=== PATIENT | female | born 1960 | race Caucasian/White ===

== ENCOUNTER 2017-12-30 00:07 | Inpatient (IN) ==
[2017-12-30] MEDS ORDERED: NS 1000 ML 1,000 ML ONE ×2 (00:43→02:07)
[2017-12-30] MEDS ORDERED: NS 1000 ML 1,000 ML IV ONE ×2 (00:51→02:14)
--- NOTE | 2017-12-30 01:01 | DR.GENAD ---
HPI - Complaint/Symptoms Chief Complaint Doctors Comments: Patient states she thinks she is loosing her mind. She has been having dizziness when she stands for the pat two weeks. States she has fallen at home this morning when she was going to the bathroom she lost her balance and fell. She denies headache, nasuea, vomiting, blurred vision or spots in front of her eyes. states she lives with her son and he has a puppy that likes to bite and scratch her and her skin is sensitive. She smokes one pack cigarettes daily and smoke marijuana daily and takes three Hydrocodone 10/325 daily. States she is a patient of Dr. Regina Juarez or Dr Carlisle in [place]. She denies diarrhea or dysuria or hematuria. Chief Complaint:: Pt states, "I'm not doing real good. Pain is in the middle of my bed. I expereinced numbness in my legs earlier." Family states she "had a choking like cough and fell back on the couch. Her eyes rolled in the back of her head." - Nurses notes reviewed Nurses Notes Review: Yes - Source History Provided: Patient - Mode of Arrival Mode of Arrival: Ambulatory - Timing Onset of Chief Complaint: 12/28/17 - Duration Duration: Constant How lon Duration: Weeks - Location Location: dizziness - Severity Severity: Moderate - Modifying Factors Worsens:: nothing Improves:: nothing PMH - PMH Past Medical History: Yes Past Medical History: Arthritis, CVA, [place] Past Medical History Comment: Osteoporosis Past Surgical History: No Surgical History: Angioplasty/Stents - Family History History of Family Medical Conditions: Yes Family Medical History: [place], Hypertension - Social History Alcohol Use: None Do you use any recreational Drugs:: Yes (marijuana) Lives With: Family - infectious screening Have you traveled outside the country in the last 6 months?: No Isolation: Standard ROS - Review of Systems Constitutional: No Symptoms Reported, Weakness, Loss of Appetite Eyes: No Symptoms Reported. negative: See HPI, Eye Pain, Blurred Vision, Tearing, Discharge, Photophobia, Diplopia, Other ENTM: No Symptoms Reported Respiratoy: No Symptoms Reported. negative: See HPI, Productive Cough, Non- Productive Cough, Moist Cough, Dry Cough, Hacking Cough, Barking Cough, Brassy Cough, Orthopnea, Short of Breath, Stridor, Wheezing, Hemoptysis, Other Cardiovascular: No Symptoms Reported Gastrointestinal/Abdominal: No Symptoms Reported. negative: See HPI, Abdominal Pain, Constipation, Diarrhea, Nausea, Vomiting, Food Intolerance, Other Genitourinary: No Symptoms Reported Neurological: No Symptoms Reported Musculoskeletal: No Symptoms Reported Integumentary: No Symptoms Reported Hematologic/Lymphatic: No Symptoms Reported Endocrine: No Symptoms Reported Psychiatric: No Symptoms Reported PE - General Limitations: No Limitations General Appearance: Alert, In Distress (moderate) - Head Head Exam: Normal Inspection, Atraumatic, Normocephalic - Eyes Eye exam: Normal Appearance, PERRL, EOMI. negative: Scleral Icterus, Conjunctival Injection, Nystagmus, Miosis, Mydrasis, Periorbital Swelling, Periorbital Tenderness, Other - ENT ENT Exam: Normal Exam, Normal Oropharynx, Normal External Ear Exam, Mucous Membranes Moist, TM's Normal Bilaterally External Ear Exam: Normal External Inspection TM/Canal Exam: Bilateral Normal Nose Exam: Normal Nose Exam Mouth Exam: Normal Inspection. negative: Drooling, Trismus, Lip Swelling, Tongue Elevation, Tongue Swelling, Laceration, Other Throat Exam: Normal Inspection - Neck Neck Exam: Normal Inspection, Full ROM, Trachea Midline - Chest Chest Inspection: Normal Inspection, Symmetric Chest Wall Rise. negative: Tenderness, Rash, Abscess, Other - Respiratory Respiratory Exam: Normal Lung Sounds Bilat. negative: Accessory Muscle Use, Chest Wall Tenderness, Prolonged Expiratory Phase, Respiratory Distress, Stridor , Other Respiratory Exam: Bilateral Clear to Auscultation - Cardiovascular Cardiovascular Exam: Regular Rate, Normal Rhythm, Normal Heart Sounds - Abdominal Exam Abdominal Exam: Normal Inspection, Normal Bowel Sounds, Soft Abdominal Tenderness: negative: RUQ, RLQ, LUQ, LLQ, Epigastrium, Suprapubic, Diffuse, Mild, Moderate, Severe, Other - Extremities Extremities Exam: Normal Inspection, Full ROM, Normal Capillary Refill. negative: Tenderness, Edema, Joint Swelling, Calf Tenderness, Other - Back Back Exam: Normal Inspection, Full ROM - Neurologic Neurological Exam: Alert, Oriented X3, CN II-XII Intact, Normal Gait, Motor Sensory Deficit - Psychiatric Psychiatric Exam: Normal Affect, Normal Mood, Depressed, Anxious - Skin Skin Exam: Warm, Dry, Intact, Normal Color - Vital Signs Vitals: Temperature 97.7 F Pulse Rate [Right Radial] 70 Pulse Rate 67 Respiratory Rate 14 Blood Pressure [Right Arm] 118/53 Blood Pressure 73/45 O2 Sat by Pulse Oximetry 94 Course - Reevaluation 1st: Improved - Consultation Called: 02:55 Call Returned: 02:55 (Dr. Mejia to admit) - Education/Counseling Education/Counseling: Patient, Family Educated On: Treatment, Diagnosis, Needs for Follow Up ROR - Labs Reviewed Laboratory Results Reviewed?: Yes (All labs and x-ray results reviewed and discussed with patient) Result Diagrams: 12/30/17 01:00 12/30/17 01:00 - XRAY XRAY Interpreted by: Self (CT head: No acute intracranial abnormality noted) XRAY Findings: CXR: Pulmonary fibrosis; no acute cardiopulmonary changes noted - EKG Rate: 64 [place]: Normal Rhythm: NSR Block: None Hypertrophy: None ST: Normal - Labs Reviewed Laboratory: WBC 9.4 X10^3/uL (3.6-10.0) 12/30/17 01:00 RBC 3.23 X10^6/uL (3.5-5.4) L 12/30/17 01:00 Hgb 10.6 g/dL (12.0-16.0) L 12/30/17 01:00 Hct 29.9 % (36.0-47.0) L 12/30/17 01:00 MCV 92.7 fL (80.0-100.0) 12/30/17 01:00 MCH 33.0 pg (27.0-34.0) 12/30/17 01:00 MCHC 35.6 g/dL (33.0-35.0) H 12/30/17 01:00 RDW 13.0 % (11.6-16.5) 12/30/17 01:00 Plt Count 234 X10^3/uL (150.0-450.0) 12/30/17 01:00 MPV 7.3 fL (7.4-11.0) L 12/30/17 01:00 Neut % (Auto) 54.1 % (42.0-75.0) 12/30/17 01:00 Lymph % (Auto) 33.9 % (21.0-51.0) 12/30/17 01:00 [place] % (Auto) 8.6 % (0.0-13.0) 12/30/17 01:00 Eos % (Auto) 3.0 % (0.9-2.9) H 12/30/17 01:00 Baso % (Auto) 0.4 % (0.2-1.0) 12/30/17 01:00 Neut # (Auto) 5.1 x10^3/uL (2.2-4.8) H 12/30/17 01:00 Lymph # (Auto) 3.2 X10^3/uL (1.3-2.9) H 12/30/17 01:00 [place] # (Auto) 0.8 x10^3/uL (0.3-0.8) 12/30/17 01:00 Eos # (Auto) 0.3 x10^3/uL (0.0-0.2) H 12/30/17 01:00 Baso # (Auto) 0.0 X10^3/uL (0.0-0.1) 12/30/17 01:00 Absolute Nucleated RBC 0.0 /100WBC 12/30/17 01:00 INR Target Range - 12/30/17 01:00 INR 0.96 (0.8-1.3) 12/30/17 01:00 APTT 32.4 SECONDS (22.9-36.5) 12/30/17 01:00 PTT Comment - 12/30/17 01:00 D-Dimer 402 ng/mL (0-400) H* 12/30/17 01:00 Sodium 123 mmol/L (136-145) L* 12/30/17 01:00 Corrected Sodium TNP 12/30/17 01:00 Potassium 4.0 mmol/L (3.5-5.1) 12/30/17 01:00 Chloride 93 mmol/L (98-107) L 12/30/17 01:00 Carbon Dioxide 24.4 mmol/L (21-32) 12/30/17 01:00 BUN 53 mg/dL (7-18) H 12/30/17 01:00 Creatinine 3.15 mg/dL (0.55-1.02) H 12/30/17 01:00 Est GFR (MDRD) Af Amer 20 (>60) L 12/30/17 01:00 Est GFR (MDRD) Non-Af 16 (>60) L 12/30/17 01:00 Glucose 83 mg/dL (65-99) 12/30/17 01:00 Calcium 7.7 mg/dL (8.5-10.1) L 12/30/17 01:00 Corrected Calcium 8.4 mg/dL (8.5-10.1) L 12/30/17 01:00 Magnesium 2.1 mg/dL (1.7-2.9) 12/30/17 01:00 Total Bilirubin 0.40 mg/dL (0.2-1.0) 12/30/17 01:00 AST 20 Units/L (15-37) 12/30/17 01:00 ALT 18 Units/L (12-78) 12/30/17 01:00 Alkaline Phosphatase 78 Units/L (46-116) 12/30/17 01:00 Creatine Kinase 404 Units/L (26-192) H 12/30/17 01:00 CK-MB (CK-2) 4.6 ng/mL (0-4.0) H* 12/30/17 01:00 CK/CKMB % Calc 1.1 % (<4) 12/30/17 01:00 Troponin I < 0.02 ng/mL (0-1.5) 12/30/17 01:00 Total Protein 6.9 g/dL (6.4-8.2) 12/30/17 01:00 Albumin 3.1 g/dL (3.4-5.0) L 12/30/17 01:00 Globulin 3.8 g/dL (2.5-4.5) 12/30/17 01:00 Albumin/Globulin Ratio 0.8 Ratio (1.1-2.1) L 12/30/17 01:00 - Diagnosis Discharge Problem: Acute hyponatremia, Dehydration, Altered mental status Hypotension Qualifiers: Hypotension type: hypotension due to hypovolemia Qualified Code(s): I95.89 - Other hypotension Acute renal failure Qualifiers: Acute renal failure type: unspecified Qualified Code(s): N17.9 - Acute kidney failure, unspecified - Discharge Plan Disposition: ADMITTED INPATIENT Condition: Stable - Follow ups/Referrals Follow ups/Referrals: NFD,None [Primary Care Provider] - 3 days - Instructions
[2017-12-30 01:10] LABS: BASOPHILS % (AUTO) 0.4 % (0.2-1.0); EOSINOPHILS # (AUTO) 0.3 x10^3/uL (0.0-0.2); HEMATOCRIT 29.9 % (36.0-47.0); HEMOGLOBIN 10.6 g/dL (12.0-16.0); LYMPHOCYTES # (AUTO) 3.2 X10^3/uL (1.3-2.9); LYMPHOCYTES % (AUTO) 33.9 % (21.0-51.0); MEAN CORPUSCULAR HGB CONC 35.6 g/dL (33.0-35.0); MEAN CORPUSCULAR VOLUME 92.7 fL (80.0-100.0); MEAN PLATELET VOLUME 7.3 fL (7.4-11.0); MONOCYTES # (AUTO) 0.8 x10^3/uL (0.3-0.8); MONOCYTES % (AUTO) 8.6 % (0.0-13.0); NEUTROPHILS # (AUTO) 5.1 x10^3/uL (2.2-4.8); NEUTROPHILS % (AUTO) 54.1 % (42.0-75.0); PLATELET COUNT 234 X10^3/uL (150.0-450.0); RED BLOOD COUNT 3.23 X10^6/uL (3.5-5.4); WHITE BLOOD COUNT 9.4 X10^3/uL (3.6-10.0)
[2017-12-30 01:30] LABS: ALANINE AMINOTRANSFERASE 18 Units/L (12-78); ALBUMIN 3.1 g/dL (3.4-5.0); ALKALINE PHOSPHATASE 78 Units/L (46-116); ASPARTATE AMINO TRANSFERASE 20 Units/L (15-37); BLOOD UREA NITROGEN 53 mg/dL (7-18); CALCIUM 7.7 mg/dL (8.5-10.1); CARBON DIOXIDE 24.4 mmol/L (21-32); CHLORIDE 93 mmol/L (98-107); CKMB % 1.1 % (<4); COR CA(FOR HYPOALB) 8.4 mg/dL (8.5-10.1); CREATINE KINASE 404 Units/L (26-192); CREATININE 3.15 mg/dL (0.55-1.02); MAGNESIUM 2.1 mg/dL (1.7-2.9); TOTAL PROTEIN 6.9 g/dL (6.4-8.2); TROPONIN I < 0.02 ng/mL (0-1.5); eGFR NON BLACK RACES 16 (>60)
[2017-12-30 01:43] LABS: CREATINE KINASE MB 4.6 ng/mL (0-4.0); SODIUM 123 mmol/L (136-145)
--- NOTE | 2017-12-30 02:46 | CT ---
CT head without contrast Indication: Altered mental status Comparison: 06/28/2016 Technique: CT images of the head were obtained without contrast. Automatic exposure control was utili [place]. Findings: There is generalized age-appropriate cortical involution, with concomitant ventricular and sulcal enlargement. There is no evidence for acute bleed, generalized edema, mass effect, or abnormal extra-axial collection. No suspicious skeletal lesion. The visualized paranasal sinuses and mastoid air cells are clear. Impression: No acute intracranial abnormality. Reported By:
[2017-12-30] MEDS ORDERED: NS 1000 ML 1,000 ML IV SCH (03:00)
[2017-12-30] MEDS: NS 1000 ML 1,000 ML IV SCH ×3 (05:04→21:24)
[2017-12-30 05:43] VITALS: BMI 26.9
[2017-12-30 06:01] LABS: BASOPHILS % (AUTO) 0.5 % (0.2-1.0); EOSINOPHILS # (AUTO) 0.2 x10^3/uL (0.0-0.2); EOSINOPHILS % (AUTO) 2.8 % (0.9-2.9); HEMATOCRIT 32.5 % (36.0-47.0); HEMOGLOBIN 11.5 g/dL (12.0-16.0); LYMPHOCYTES # (AUTO) 2.6 X10^3/uL (1.3-2.9); LYMPHOCYTES % (AUTO) 39.3 % (21.0-51.0); MEAN CORPUSCULAR HEMOGLOBIN 32.8 pg (27.0-34.0); MEAN CORPUSCULAR HGB CONC 35.3 g/dL (33.0-35.0); MEAN CORPUSCULAR VOLUME 93.1 fL (80.0-100.0); MEAN PLATELET VOLUME 7.7 fL (7.4-11.0); MONOCYTES # (AUTO) 0.5 x10^3/uL (0.3-0.8); MONOCYTES % (AUTO) 8.2 % (0.0-13.0); NEUTROPHILS # (AUTO) 3.3 x10^3/uL (2.2-4.8); NEUTROPHILS % (AUTO) 49.2 % (42.0-75.0); PLATELET COUNT 215 X10^3/uL (150.0-450.0); RED BLOOD COUNT 3.49 X10^6/uL (3.5-5.4); RED CELL DISTRIBUTION WIDTH 13.3 % (11.6-16.5); WHITE BLOOD COUNT 6.7 X10^3/uL (3.6-10.0)
--- NOTE | 2017-12-30 06:11 | RAD ---
Chest, one view Indication: Chest pain Comparison: 01/13/2016 Findings: Patient in is slightly rotated to the right. Accounting for this, the cardiac silhouette is within normal limits. There are streaky linear opacities at the right lung base, suggesting atelecta sis. The lungs are otherwise grossly clear. No significant pleural effusion or pneumothorax. Impression: No acute chest process. Reported By:
[2017-12-30 06:30] LABS: ALANINE AMINOTRANSFERASE 20 Units/L (12-78); ALBUMIN 3.1 g/dL (3.4-5.0); ALKALINE PHOSPHATASE 85 Units/L (46-116); ASPARTATE AMINO TRANSFERASE 24 Units/L (15-37); BLOOD UREA NITROGEN 50 mg/dL (7-18); CALCIUM 8.1 mg/dL (8.5-10.1); CARBON DIOXIDE 23.8 mmol/L (21-32); CHLORIDE 97 mmol/L (98-107); CHOL/HDL RATIO 7.8 (0.0-5.0); CHOLESTEROL 265 mg/dL (0-200); COR CA(FOR HYPOALB) 8.8 mg/dL (8.5-10.1); CREATININE 2.56 mg/dL (0.55-1.02); HDL CHOLESTEROL 34 mg/dL (40-60); SODIUM 128 mmol/L (136-145); TOTAL PROTEIN 7.1 g/dL (6.4-8.2); TRIGLYCERIDES 395 mg/dL (0-150); eGFR NON BLACK RACES 21 (>60)
[2017-12-30 06:44] LABS: CKMB % 1.8 % (<4); CREATINE KINASE 448 Units/L (26-192); TROPONIN I < 0.02 ng/mL (0-1.5)
[2017-12-30 06:47] LABS: CREATINE KINASE MB 7.9 ng/mL (0-4.0)
[2017-12-30] MEDS: PROTONIX INJ 40 MG VIAL IVP SCH (08:28)
--- NOTE | 2017-12-30 11:14 | DR.H&P ---
H&P - History & Physical for Day of: H&P Date: 12/30/17 - Chief Complaint Chief Complaint: weakness - History of Present Illness History of Present Illness: 57WF ER ADMISSION AFTER PRESENTING WITH CO WEAKNESS ALL OVER, SOME LOOSE STOOL. DENIES PAIN OR SOB. PT HAS CHEST CONGESTION HISTORY OF DAILY SMOKER, DENIES ANY KNOWN HX COPD. PT NA 123 ON ADMISSION WITH ACUTE RENAL FAILURE BU 53/CREAT 3.15. PT HAS PMH OF HTN. PT ADMITTED FOR TREATMENT OF ACUTE RENAL FAILURE - Past Medical History Past Medical History: Arthritis, CVA, [place] - Past Surgical History Surgical History: Angioplasty/Stents - Family History Family Medical History: [place], Hypertension - Social History Does patient currently use any type of tobacco product: Yes Have you used tobacco products in the last 12 months: Yes Type of Tobacco Use: Cigarettes How many years tobacco product used: 20 Alcohol Use: None Drug Use: Marijuana - Medications Home Medications: MS No Known Drug Allergy [No Known Drug Allergy] Allergy (Verified 01/13/16 20: 26) CONTINUE taking the following medications lisinopril 20 mg PO BID 12/30/17 [History] - Review of Systems Constitutional: Weakness Eyes: No Symptoms Reported ENT: No Symptoms Reported Respiratory: Wheezing Cardiovascular: No Symptoms Reported Gastrointestinal: Diarrhea Genitourinary: No Symptoms Reported Musculoskeletal: Back Pain Skin: No Symptoms Reported Neurological: Weakness - Physical Exam Vital Signs: Temperature 97.6 F Pulse Rate [Right Radial] 70 Pulse Rate 67 Respiratory Rate 18 Blood Pressure [Left Arm] 94/55 Blood Pressure [Right Arm] 118/53 Blood Pressure 73/45 O2 Sat by Pulse Oximetry 94 Oriented: Normal Eyes: Normal Ear: Normal Throat: Dry Respiratory: Rhonchi Throughout, Wheezes Throughout, RLL Diminished, LLL Diminished Cardiovascular: Normal : Normal Auscultation: Bowel Sounds: Normal Palpation: Normal Tenderness: Normal Skin: Decreased Turgur Musculoskeletal: Back:Lumbar Psychiatric: Normal Speech Pattern: Clear - Assessment/Plan (1) Acute renal failure Qualifiers: Acute renal failure type: unspecified Qualified Code(s): N17.9 - Acute kidney failure, unspecified Status: Acute Plan: ADMIT, IV HYDRATION, BLOOD PRESSURE CONTROL. HOLD ANTI HYPERTENSIVES. VERIFY HOME MEDS, ENCOURAGE PO HYDRATION. CT BRAIN AND CXR ON ADMISSION. REPEAT AM LABS (2) Acute hyponatremia Status: Acute (3) COPD (chronic obstructive pulmonary disease) Status: Acute (4) Hypotension Qualifiers: Hypotension type: hypotension due to hypovolemia Qualified Code(s): I95.89 - Other hypotension; E86.1 - Hypovolemia Status: Acute - Allergies Allergies/Adverse Reactions: Allergies Allergy/AdvReac Type Severity Reaction Status Date / Time MS No Known Drug Allergy Allergy Verified 01/13/16 20:26 [No Known Drug Allergy]
[2017-12-30] MEDS ORDERED: PriLOSEC PO SCH (12:00)
[2017-12-30 13:05] LABS: CKMB % 1.6 % (<4); CREATINE KINASE 398 Units/L (26-192); TROPONIN I < 0.02 ng/mL (0-1.5)
[2017-12-30 13:13] LABS: CREATINE KINASE MB 6.4 ng/mL (0-4.0)
[2017-12-30 15:46] LABS: BILIRUBIN,URINE NEGATIVE (NEGATIVE); BLOOD/HEMOGLOBIN,URINE NEGATIVE (NEGATIVE); GLUCOSE, URINE NEGATIVE (NEGATIVE); KETONES,URINE NEGATIVE (NEGATIVE); LEUKOCYTE ESTERASE ,URINE 1+ (NEGATIVE); NITRITES,URINE NEGATIVE (NEGATIVE); PROTEIN,URINE NEGATIVE (NEGATIVE); UROBILINOGEN,URINE NORMAL (NORMAL)
[2017-12-30 15:50] LABS: APPEARANCE,URINE CLEAR (CLEAR); COLOR,URINE PALE YELLOW (YELLOW)
[2017-12-30 15:56] LABS: AMORPHOUS SEDIMENT,UR TRACE /HPF (NEGATIVE); BACTERIA,URINE 1+ /HPF (NEGATIVE); RBC,URINE NONE SEEN /HPF (NONE SEEN); SQUAMOUS EPITHELIAL CELL,UR FEW /HPF (NEGATIVE)
[2017-12-30] MEDS: NICOTINE PATCH TD SCH (16:10)
[2017-12-31] MEDS: NS 1000 ML 1,000 ML IV SCH ×4 (05:47→21:51)
--- NOTE | 2017-12-31 06:14 | RAD ---
HISTORY: Chest congestion Study: Chest AP portable Comparison: 12/30/2017 Findings: The heart is within normal limits in size. The yanet are normal. The aorta is calcified. The lungs are well inflated and free of acute infiltrates. No pleural effusions are identified. The bony thorax is unremarkable. IMPRESSION: Lungs clear Reported By:
[2017-12-31 06:18] LABS: BASOPHILS % (AUTO) 0.6 % (0.2-1.0); EOSINOPHILS # (AUTO) 0.1 x10^3/uL (0.0-0.2); EOSINOPHILS % (AUTO) 3.6 % (0.9-2.9); HEMATOCRIT 33.1 % (36.0-47.0); HEMOGLOBIN 11.6 g/dL (12.0-16.0); LYMPHOCYTES # (AUTO) 1.6 X10^3/uL (1.3-2.9); LYMPHOCYTES % (AUTO) 40.5 % (21.0-51.0); MEAN CORPUSCULAR HEMOGLOBIN 32.3 pg (27.0-34.0); MEAN CORPUSCULAR HGB CONC 35.1 g/dL (33.0-35.0); MEAN CORPUSCULAR VOLUME 92.1 fL (80.0-100.0); MEAN PLATELET VOLUME 7.7 fL (7.4-11.0); MONOCYTES # (AUTO) 0.4 x10^3/uL (0.3-0.8); MONOCYTES % (AUTO) 10.6 % (0.0-13.0); NEUTROPHILS # (AUTO) 1.8 x10^3/uL (2.2-4.8); NEUTROPHILS % (AUTO) 44.7 % (42.0-75.0); PLATELET COUNT 222 X10^3/uL (150.0-450.0); RED BLOOD COUNT 3.59 X10^6/uL (3.5-5.4); RED CELL DISTRIBUTION WIDTH 13.6 % (11.6-16.5); WHITE BLOOD COUNT 3.9 X10^3/uL (3.6-10.0)
[2017-12-31 06:21] LABS: ALANINE AMINOTRANSFERASE 20 Units/L (12-78); ALKALINE PHOSPHATASE 88 Units/L (46-116); ASPARTATE AMINO TRANSFERASE 19 Units/L (15-37); BLOOD UREA NITROGEN 30 mg/dL (7-18); CALCIUM 8.6 mg/dL (8.5-10.1); CARBON DIOXIDE 24.1 mmol/L (21-32); CHLORIDE 108 mmol/L (98-107); COR CA(FOR HYPOALB) 9.4 mg/dL (8.5-10.1); CREATININE 1.33 mg/dL (0.55-1.02); SODIUM 138 mmol/L (136-145); TOTAL PROTEIN 7.1 g/dL (6.4-8.2); eGFR NON BLACK RACES 44 (>60)
[2017-12-31] MEDS: PROTONIX INJ 40 MG VIAL IVP SCH (09:18)
[2017-12-31] MEDS: NICOTINE PATCH TD SCH (09:18)
[2017-12-31] MEDS ORDERED: TYLENOL 325 MG TAB PO ONE (13:15)
[2017-12-31] MEDS: TYLENOL 325 MG TAB PO PRN ×2 (13:30→19:30)
[2018-01-01] MEDS: TYLENOL 325 MG TAB PO PRN (04:27)
[2018-01-01] MEDS: NS 1000 ML 1,000 ML IV SCH (04:47)
[2018-01-01 06:10] LABS: ALANINE AMINOTRANSFERASE 17 Units/L (12-78); ALBUMIN 3.1 g/dL (3.4-5.0); ALKALINE PHOSPHATASE 88 Units/L (46-116); ASPARTATE AMINO TRANSFERASE 16 Units/L (15-37); BLOOD UREA NITROGEN 17 mg/dL (7-18); CALCIUM 8.9 mg/dL (8.5-10.1); CARBON DIOXIDE 26.1 mmol/L (21-32); CHLORIDE 106 mmol/L (98-107); COR CA(FOR HYPOALB) 9.6 mg/dL (8.5-10.1); CREATININE 1.05 mg/dL (0.55-1.02); SODIUM 137 mmol/L (136-145); TOTAL PROTEIN 7.4 g/dL (6.4-8.2); eGFR NON BLACK RACES 58 (>60)
[2018-01-01 06:12] LABS: BASOPHILS % (AUTO) 0.5 % (0.2-1.0); EOSINOPHILS # (AUTO) 0.1 x10^3/uL (0.0-0.2); EOSINOPHILS % (AUTO) 1.4 % (0.9-2.9); HEMATOCRIT 34.8 % (36.0-47.0); HEMOGLOBIN 12.3 g/dL (12.0-16.0); LYMPHOCYTES # (AUTO) 1.8 X10^3/uL (1.3-2.9); LYMPHOCYTES % (AUTO) 32.1 % (21.0-51.0); MEAN CORPUSCULAR HEMOGLOBIN 32.7 pg (27.0-34.0); MEAN CORPUSCULAR HGB CONC 35.2 g/dL (33.0-35.0); MEAN CORPUSCULAR VOLUME 92.8 fL (80.0-100.0); MONOCYTES # (AUTO) 0.5 x10^3/uL (0.3-0.8); MONOCYTES % (AUTO) 8.2 % (0.0-13.0); NEUTROPHILS # (AUTO) 3.2 x10^3/uL (2.2-4.8); NEUTROPHILS % (AUTO) 57.8 % (42.0-75.0); PLATELET COUNT 218 X10^3/uL (150.0-450.0); RED BLOOD COUNT 3.75 X10^6/uL (3.5-5.4); RED CELL DISTRIBUTION WIDTH 13.5 % (11.6-16.5); WHITE BLOOD COUNT 5.6 X10^3/uL (3.6-10.0)
[2018-01-01] MEDS: PROTONIX INJ 40 MG VIAL IVP SCH (08:35)
[2018-01-01 10:16] VITALS: BP 158/72
--- NOTE | 2018-01-27 17:16 | PCM.PROG ---
Progress Note - Progress Note for Day of Date of Exam: 12/31/17 - Subjective Subjective: 57WF ER ADMISSION AFTER PRESENTING WITH CO WEAKNESS ALL OVER, SOME LOOSE STOOL. PT HAS CHEST CONGESTION HISTORY OF DAILY SMOKER, PT NA 123 ON ADMISSION WITH ACUTE RENAL FAILURE BU 53/CREAT 3.15. PT HAS PMH OF HTN. PT ADMITTED FOR TREATMENT OF ACUTE RENAL FAILURE. PATIENT STATES IS STARTING TO FEEL BETTER. DENIES ANY NEW COMPLAINTS. - Past Medical Family Social History Past Med/Fam/Surg Hx: No changes since H&P Allergies: Allergies No Known Drug Allergies Allergy (Verified 12/30/17 21:57) - Review of Systems ROS: No change since H&P - Vital Signs and I&O's Vital Signs: Temperature 97.7 F Pulse Rate [Right Radial] 105 Pulse Rate 67 Respiratory Rate 20 Blood Pressure [Left Arm] 160/95 Blood Pressure [Right Arm] 158/72 Blood Pressure 73/45 O2 Sat by Pulse Oximetry 98 - Physical Exam Oriented: Normal Eyes: Normal Ear: Normal Nose: Normal Throat: Dry Respiratory: Normal Cardiovascular: Normal : Normal Auscultation: Bowel Sounds: Normal Palpation: Normal Tenderness: Normal Skin: Decreased Turgur Musculoskeletal: Back:Lumbar Psychiatric: Normal Mood Description: Calm Speech Pattern: Clear, Appropriate - Laboratory and Diagnostics Result Diagrams: 01/01/18 05:24 01/01/18 05:24 Labs: Laboratory WBC 5.6 X10^3/uL (3.6-10.0) 01/01/18 05:24 RBC 3.75 X10^6/uL (3.5-5.4) 01/01/18 05:24 Hgb 12.3 g/dL (12.0-16.0) 01/01/18 05:24 Hct 34.8 % (36.0-47.0) L 01/01/18 05:24 MCV 92.8 fL (80.0-100.0) 01/01/18 05:24 MCH 32.7 pg (27.0-34.0) 01/01/18 05:24 MCHC 35.2 g/dL (33.0-35.0) H 01/01/18 05:24 RDW 13.5 % (11.6-16.5) 01/01/18 05:24 Plt Count 218 X10^3/uL (150.0-450.0) 01/01/18 05:24 MPV 8.0 fL (7.4-11.0) 01/01/18 05:24 Neut % (Auto) 57.8 % (42.0-75.0) 01/01/18 05:24 Lymph % (Auto) 32.1 % (21.0-51.0) 01/01/18 05:24 [place] % (Auto) 8.2 % (0.0-13.0) 01/01/18 05:24 Eos % (Auto) 1.4 % (0.9-2.9) 01/01/18 05:24 Baso % (Auto) 0.5 % (0.2-1.0) 01/01/18 05:24 Neut # (Auto) 3.2 x10^3/uL (2.2-4.8) 01/01/18 05:24 Lymph # (Auto) 1.8 X10^3/uL (1.3-2.9) 01/01/18 05:24 [place] # (Auto) 0.5 x10^3/uL (0.3-0.8) 01/01/18 05:24 Eos # (Auto) 0.1 x10^3/uL (0.0-0.2) 01/01/18 05:24 Baso # (Auto) 0.0 X10^3/uL (0.0-0.1) 01/01/18 05:24 Absolute Nucleated RBC 0.1 /100WBC 01/01/18 05:24 INR Target Range - 12/30/17 01:00 INR 0.96 (0.8-1.3) 12/30/17 01:00 APTT 32.4 SECONDS (22.9-36.5) 12/30/17 01:00 PTT Comment - 12/30/17 01:00 D-Dimer 402 ng/mL (0-400) H* 12/30/17 01:00 Sodium 137 mmol/L (136-145) 01/01/18 05:24 Corrected Sodium TNP 01/01/18 05:24 Potassium 4.7 mmol/L (3.5-5.1) 01/01/18 05:24 Chloride 106 mmol/L (98-107) 01/01/18 05:24 Carbon Dioxide 26.1 mmol/L (21-32) 01/01/18 05:24 BUN 17 mg/dL (7-18) 01/01/18 05:24 Creatinine 1.05 mg/dL (0.55-1.02) H 01/01/18 05:24 Est GFR (MDRD) Af Amer > 60 (>60) 01/01/18 05:24 Est GFR (MDRD) Non-Af 58 (>60) L 01/01/18 05:24 Glucose 92 mg/dL (65-99) 01/01/18 05:24 Calcium 8.9 mg/dL (8.5-10.1) 01/01/18 05:24 Corrected Calcium 9.6 mg/dL (8.5-10.1) 01/01/18 05:24 Magnesium 2.1 mg/dL (1.7-2.9) 12/30/17 01:00 Total Bilirubin 0.30 mg/dL (0.2-1.0) 01/01/18 05:24 AST 16 Units/L (15-37) 01/01/18 05:24 ALT 17 Units/L (12-78) 01/01/18 05:24 Alkaline Phosphatase 88 Units/L (46-116) 01/01/18 05:24 Creatine Kinase 398 Units/L (26-192) H 12/30/17 12:20 CK-MB (CK-2) 6.4 ng/mL (0-4.0) H* 12/30/17 12:20 CK/CKMB % Calc 1.6 % (<4) 12/30/17 12:20 Troponin I < 0.02 ng/mL (0-1.5) 12/30/17 12:20 Total Protein 7.4 g/dL (6.4-8.2) 01/01/18 05:24 Albumin 3.1 g/dL (3.4-5.0) L 01/01/18 05:24 Globulin 4.3 g/dL (2.5-4.5) 01/01/18 05:24 Albumin/Globulin Ratio 0.7 Ratio (1.1-2.1) L 01/01/18 05:24 Triglycerides 395 mg/dL (0-150) H 12/30/17 05:20 Cholesterol 265 mg/dL (0-200) H 12/30/17 05:20 LDL Cholesterol, Calc 152 mg/dL (0-100) H 12/30/17 05:20 HDL Cholesterol 34 mg/dL (40-60) L 12/30/17 05:20 Cholesterol/HDL Ratio 7.8 (0.0-5.0) H 12/30/17 05:20 Specimen Type Clean catch urine 12/30/17 15:16 Urine Color Pale yellow (YELLOW) 12/30/17 15:16 Urine Appearance Clear (CLEAR) 12/30/17 15:16 Urine pH 6.0 (5.0 - 8.0) 12/30/17 15:16 Ur Specific [place] 1.005 (1.000-1.030) 12/30/17 15:16 Urine Protein Negative (NEGATIVE) 12/30/17 15:16 Urine Glucose (UA) Negative (NEGATIVE) 12/30/17 15:16 Urine Ketones Negative (NEGATIVE) 12/30/17 15:16 Urine Occult Blood Negative (NEGATIVE) 12/30/17 15:16 Urine Nitrite Negative (NEGATIVE) 12/30/17 15:16 Urine Bilirubin Negative (NEGATIVE) 12/30/17 15:16 Urine Urobilinogen Normal (NORMAL) 12/30/17 15:16 Ur Leukocyte Esterase 1+ (NEGATIVE) 12/30/17 15:16 Urine RBC None seen /HPF (NONE SEEN) 12/30/17 15:16 Urine WBC 3-5 /HPF (NONE SEEN) 12/30/17 15:16 Ur Squamous Epith Cells Few /HPF (NEGATIVE) 12/30/17 15:16 Amorphous Sediment Trace /HPF (NEGATIVE) 12/30/17 15:16 Urine Bacteria 1+ /HPF (NEGATIVE) 12/30/17 15:16 Ur Culture Indicated? No/not indicated 12/30/17 15:16 - Plan (1) Acute hyponatremia Status: Acute Plan: MONITOR LABS, GENTLE HYDRATION (2) Acute renal failure Status: Acute Qualifiers: Acute renal failure type: unspecified Qualified Code(s): N17.9 - Acute kidney failure, unspecified Plan: IV HYDRATION, BLOOD PRESSURE CONTROL. REPEAT AM LABS (3) Dehydration Status: Acute (4) Hypotension Status: Acute Qualifiers: Hypotension type: hypotension due to hypovolemia Qualified Code(s): I95.89 - Other hypotension; E86.1 - Hypovolemia Plan: GENTLE HYDRATION, MONITOR BP
== END 2018-01-01 10:45 | disposition home or self-care (01) | DRG 683 ==
LOC: ER 00:07 → MED/SURG 03:50
PROVIDERS: ADMIT Internal Medicine; ATTEND Internal Medicine
DX: I95.89 Other hypotension; I25.10 Atherosclerotic heart disease of native coronary artery without angina pectoris; R29.6 Repeated falls; E86.1 Hypovolemia; F12.10 Cannabis abuse, uncomplicated; R41.82 Altered mental status, unspecified; F80.1 Expressive language disorder; N17.8 Other acute kidney failure; R42 Dizziness and giddiness; M13.88 Other specified arthritis, other site; F17.210 Nicotine dependence, cigarettes, uncomplicated; E86.0 Dehydration; J44.9 Chronic obstructive pulmonary disease, unspecified; Z86.79 Personal history of other diseases of the circulatory system; E87.1 Hypo-osmolality and hyponatremia
CPT/HCPCS: 36415; 70450; 71010; 71045; 80053; 80061; 81001; 82550; 82553; 83735; 84484; 85025; 85378; 85610; 85730; 92523; 93005; 93010; 96365; 96367; 97162; 99284; A4216; A4222; C9113; J3490; J7030